=== PATIENT | female | born 1965 | race Caucasian/White ===

== ENCOUNTER 2018-09-04 18:23 | Emergency (ER) | payer SELFPAY ==
[~2018-09-04] VITALS: Ht 177.8 cm; Wt 61.7 kg
[2018-09-04] MEDS ORDERED: ONDANSETRON PF 4 MG/2 ML VIAL. IV ONE (18:45)
[2018-09-04] MEDS ORDERED: IV NORMAL SALINE 1000ML BAG 1,000 ML IV ONE (19:30)
[2018-09-04] MEDS ORDERED: fentaNYL PF VIAL 100 MCG/2 ML VIAL IV ONE (19:30)
[2018-09-04] MEDS ORDERED: PANTOPRAZOLE IV PUSH 40 MG VIAL. IVP ONE (19:30)
[2018-09-04 19:38] LABS: BASO % 0 % (0-3); EOS % 0 % (0-3); HEMATOCRIT 43.7 % (36.0-47.0); HEMOGLOBIN 14.1 g/dL (12.0-15.5); LYMPH # 0.9 x10^3/uL (1.0-4.8); LYMPH % 9 % (24-48); MEAN CORPUSCULAR HEMOGLOBIN 29 pg (25-35); MEAN CORPUSCULAR HGB CONC 32 g/dL (31-37); MEAN CORPUSCULAR VOLUME 90 fL (79-100); MONO # 0.4 x10^3/uL (0.0-1.1); MONO % 4 % (0-9); NEUT # 8.5 x10^3uL (1.8-7.7); NEUT % 87 % (31-73); PLATELET COUNT 300 x10^3/uL (140-400); RED BLOOD COUNT 4.85 x10^6/uL (3.50-5.40); RED CELL DISTRIBUTION WIDTH 14.8 % (11.5-14.5); WHITE BLOOD COUNT 9.8 x10^3/uL (4.0-11.0)
[2018-09-04 19:51] LABS: CALCIUM 10.1 mg/dL (8.5-10.1); CREATININE 1.4 mg/dL (0.6-1.0); GFR 39.5; POTASSIUM 3.2 mmol/L (3.5-5.1)
--- NOTE | 2018-09-04 19:55 | PHYS DOC ---
Past Medical History Past Medical History: Anxiety Additional Past Medical Histor: hiatal hernia, agoraphobia, unknown personality disorder Past Surgical History: Cholecystectomy, Hysterectomy Smoking: Cigarettes, Less than 1pk/day Alcohol Use: None Drug Use: None Adult General Chief Complaint Chief Complaint: NAUSEA/VOMITING/DIARRHA HPI HPI Patient is a 53 year old female who presents with two days of nausea, vomiting and diarrhea. She reports that she has a hiatal hernia, diagnosed [address] [facility]. She reports that over the last six months she has had increased difficulty keeping food down, she states that the food gets stuck in her epigastric region and eventually she vomits it up. She has dropped from 152 to 136 pounds in the last six months. She reports that last night she began vomiting with epigastric pain that increases in pain about every 20 minutes, causing her to throw up and/or dry heave. She pain is a cramping sensation in the epigastric region. She is unable to keep liquids down. The pain has increased to a 10/10 today and she decided to come to the ER. She reports that she began vomiting up blood on the drive in to the ER, in an amount less than a coke can. She reports that Xanax and Seroquel allowed her to sleep a little last night, but she continues to feel the cramping pain. Her reports that when she does vomit, sometimes the vomit is of old food that smells putrid which they attributed to a "sad/slow stomach". Her reports that she is on a list for a free EGD since they do not have insurance. She denies sick contacts. She denies f/c, hematochezia, hematuria, SOB, CP.[] Review of Systems Review of Systems Constitutional: Denies fever or chills [] Eyes: Denies change in visual acuity, redness, or eye pain [] HENT: Denies nasal congestion or sore throat [] Respiratory: Denies cough or shortness of breath [] Cardiovascular: No additional information not addressed in HPI [] GI: Reports epigastric pain with vomiting and cramping sensation. She reports vomiting up red blood. She reports yellow or brown diarrhea. She denies blood stools or black tarry stools. [] : Denies dysuria or hematuria [] Musculoskeletal: Denies back pain or joint pain [] Integument: Denies rash or skin lesions, denies trauma to skin [] Neurologic: Denies headache, focal weakness or sensory changes [] Endocrine: Denies polyuria or polydipsia [] All other systems were reviewed and found to be within normal limits, except as documented in this note. Current Medications Current Medications Current Medications Medications (Trade) Dose Ordered Sig/Carley Start Time Stop Time Status Last Admin Dose Admin Fentanyl Citrate (Fentanyl 2ml Vial) 50 mcg 1X ONCE 09/04/18 19:30 09/04/18 19:31 DC 09/04/18 19:52 50 MCG Lorazepam (Ativan) 1 mg 1X ONCE 09/04/18 19:15 09/04/18 19:16 DC 09/04/18 19:06 1 MG Ondansetron HCl (Zofran) 4 mg 1X ONCE 09/04/18 18:45 09/04/18 19:08 DC 09/04/18 18:45 4 MG Pantoprazole Sodium (PROTONIX VIAL for IV PUSH) 80 mg 1X ONCE 09/04/18 19:30 09/04/18 19:31 DC 09/04/18 19:51 80 MG Potassium Chloride (KCl Oral Soln) 40 meq 1X ONCE 09/04/18 20:15 09/04/18 20:16 DC 09/04/18 20:15 40 MEQ Sodium Chloride 500 ml @ 500 mls/hr 1X ONCE 09/04/18 20:00 09/04/18 20:59 DC 09/04/18 20:00 500 MLS/HR Allergies Allergies Allergies Coded Allergies Type Severity Reaction Last Updated Verified No Known Drug Allergies 09/04/18 No Pt reports penicillin allergy Physical Exam Physical Exam Constitutional: Well developed, well nourished, appears in discomfort, dry heaving during exam with brown sputum production. [] HENT: Normocephalic, atraumatic, bilateral external ears normal, poor dentition, no visible bleeding source appreciated, oropharynx moist, no oral exudates, nose normal. [] Eyes: PERRLA, EOMI, conjunctiva normal, no discharge. [] Neck: Normal range of motion, no tenderness, supple, no stridor. [] Cardiovascular:Heart rate regular rhythm, no murmur [] Lungs & Thorax: Bilateral breath sounds clear to auscultation [] Abdomen: Abdominal integument intact, Bowel sounds normal, soft, general tenderness to palpation in EPIGASTRIC, no masses, no pulsatile masses. [] Skin: Warm, dry, no erythema, no rash. [] Back: No tenderness, no CVA tenderness. [] Extremities: No tenderness, no cyanosis, no clubbing, ROM intact, no edema. [] Neurologic: Alert and oriented X 3, normal motor function, normal sensory function, no focal deficits noted. [] Psychologic: Labile affect, judgement normal, mood normal. [] Current Patient Data Vital Signs Vital Signs Date Time Temp Pulse Resp B/P (MAP) Pulse Ox O2 Delivery O2 Flow Rate FiO2 09/04/18 19:52 16 100 Room Air 09/04/18 19:00 98.8 58 121/76 (91) 98.8 Lab Values Laboratory Tests Test 09/04/18 19:00 09/04/18 21:00 White Blood Count 9.8 x10^3/uL (4.0-11.0) Red Blood Count 4.85 x10^6/uL (3.50-5.40) Hemoglobin 14.1 g/dL (12.0-15.5) Hematocrit 43.7 % (36.0-47.0) Mean Corpuscular Volume 90 fL (79-100) Mean Corpuscular Hemoglobin 29 pg (25-35) Mean Corpuscular Hemoglobin Concent 32 g/dL (31-37) Red Cell Distribution Width 14.8 % (11.5-14.5) H Platelet Count 300 x10^3/uL (140-400) Neutrophils (%) (Auto) 87 % (31-73) H Lymphocytes (%) (Auto) 9 % (24-48) L Monocytes (%) (Auto) 4 % (0-9) Eosinophils (%) (Auto) 0 % (0-3) Basophils (%) (Auto) 0 % (0-3) Neutrophils # (Auto) 8.5 x10^3uL (1.8-7.7) H Lymphocytes # (Auto) 0.9 x10^3/uL (1.0-4.8) L Monocytes # (Auto) 0.4 x10^3/uL (0.0-1.1) Eosinophils # (Auto) 0.0 x10^3/uL (0.0-0.7) Basophils # (Auto) 0.0 x10^3/uL (0.0-0.2) Segmented Neutrophils % 81 % (35-66) H Lymphocytes % 14 % (24-48) L Monocytes % 5 % (0-10) Platelet Estimate Adequate (ADEQUATE) Sodium Level 141 mmol/L (136-145) Potassium Level 3.2 mmol/L (3.5-5.1) L Chloride Level 98 mmol/L (98-107) Carbon Dioxide Level 27 mmol/L (21-32) Anion Gap 16 (6-14) H Blood Urea Nitrogen 14 mg/dL (7-20) Creatinine 1.4 mg/dL (0.6-1.0) H Estimated GFR (Cockcroft-Gault) 39.5 BUN/Creatinine Ratio 10 (6-20) Glucose Level 161 mg/dL (70-99) H Calcium Level 10.1 mg/dL (8.5-10.1) Magnesium Level 1.8 mg/dL (1.8-2.4) Total Bilirubin 0.5 mg/dL (0.2-1.0) Aspartate Amino Transferase (AST) 12 U/L (15-37) L Alanine Aminotransferase (ALT) 16 U/L (14-59) Alkaline Phosphatase 165 U/L (46-116) H Troponin I Quantitative < 0.017 ng/mL (0.000-0.055) Total Protein 9.2 g/dL (6.4-8.2) H Albumin 4.4 g/dL (3.4-5.0) Albumin/Globulin Ratio 0.9 (1.0-1.7) L Lipase 103 U/L (73-393) Ethyl Alcohol Level < 10 mg/dL (0-10) Urine Opiates Screen Pos (NEG) Urine Methadone Screen Neg (NEG) Urine Barbiturates Neg (NEG) Urine Phencyclidine Screen Neg (NEG) Urine Amphetamine/Methamphetamine Neg (NEG) Urine Benzodiazepines Screen Pos (NEG) Urine Cocaine Screen Neg (NEG) Urine Cannabinoids Screen Pos (NEG) Urine Ethyl Alcohol Neg (NEG) Laboratory Tests 09/04/18 19:00 Laboratory Tests 09/04/18 19:00 EKG EKG SINUS RHYTHM RATE 74 THERE IS BORDERLINE SAGGING [address] DEPRESSION FAIRLY DIFUFSELY NO OLD EKG (POTASSIUM WAS 3.2 ) THE QTC IS 484 . PROBABLY HYPOK RATHER THAN ISCHEMIA GIVEN TWO DAYS OF PAIN NEG TROP, MUCH MORE LIKELY HITAL HERNIA RELATED[] Radiology/Procedures Radiology/Procedures [] Impressions: Procedure: Contiguous axial images of the abdomen and pelvis were performed after the administration of 60 cc of Omni 300 IV contrast and without oral contrast. CT Abdomen with contrast: Findings: There has been prior cholecystectomy. Liver: 9 mm x 6 mm hypoattenuating lesion in the right lobe liver is too small to characterize. Spleen: Unremarkable Pancreas: Unremarkable Adrenal Glands: Unremarkable Kidneys: Unremarkable There is no mass or lymphadenopathy. There is no free air. There is no free fluid. CT Pelvis with Contrast: Findings: The urinary bladder is partially collapsed. Apparent mild wall thickening is likely nondistention. There is no free fluid. There is no lymphadenopathy. The appendix is normal. Impression: 1. Hypoattenuating lesion in the right lobe of the liver is too small to characterize but could could be a small hemangioma. 2. No acute findings. PQRS Compliance Statement: One or more of the following individualized dose reduction techniques were utilized for this examination: 1. Automated exposure control 2. Adjustment of the mA and/or kV according to patient size 3. Use of iterative reconstruction technique Electronically signed by: Kalani Martines III, MD (09/04/2018 9:12 PM) [facility] DICTATED and SIGNED BY: KALANI MARTINES III, MD DATE: 09/04/182111 Course & Med Decision Making Course & Med Decision Making Pertinent Labs and Imaging studies reviewed. (See chart for details) Pt presents with two days epigastric pain, vomiting and diarrhea with new onset brown and red streaked sputum production. Pt reports diagnosis of chronic hiatal hernia six years ago and possible gastroparesis. It is likely her conditions are becoming worse considering that solid foods become "stuck" and are then vomited up. 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 Will CT her abdomen to assess for hernia and r/o potential other causes of obstruction such as a mass. Will collect labs to assess Hgb and ensure she is safe to be discharged. Pt is on a list for free EGD and I will recommend that she follow up to monitor her movement up the list if she is stable for d/c. [] -HB, NL, LABS C/W MILD DEHYDRATION, K REPLETED, HYDRATED. -CT SCAN NEG ACUTE. PT MUCH BETTER, NO EVIDENCE OF ACTIVE GI BLEED. SYMPTOMATIC TREATEMENT BELOW AND CALL PMD TOMROROW. PT IS AGREEABLE AND SYMPTOMS RESOLVED COMPLETELY. Jay Disclaimer Jay Disclaimer This electronic medical record was generated, in whole or in part, using a voice recognition dictation system. Departure Departure Impression: Primary Impression: Nausea and vomiting Disposition: HOME, SELF-CARE Condition: STABLE Referrals: NO PCP (PCP) Scripts Omeprazole (OMEPRAZOLE) 40 Mg Capsule.dr 1 CAP PO DAILY, #30 CAP 0 Refills Prov: DEBRA PAYTON MD 09/04/18 Ondansetron Hcl (ZOFRAN) 4 Mg Tablet 4 MG PO PRN TID PRN for NAUSEA/VOMITING, #15 nausea/vomiting Prov: DEBRA PAYTON MD 09/04/18 DEBRA PAYTON MD Sep 04, 2018 19:55
[2018-09-04 19:56] LABS: ALBUMIN 4.4 g/dL (3.4-5.0); ALBUMIN/GLOBULIN RATIO 0.9 (1.0-1.7); TOTAL BILIRUBIN 0.5 mg/dL (0.2-1.0); TOTAL PROTEIN 9.2 g/dL (6.4-8.2)
[2018-09-04] MEDS ORDERED: IV NORMAL SALINE 500ML BAG 500 ML IV ONE (20:00)
[2018-09-04] MEDS ORDERED: POTASSIUM CHLORIDE 20 MEQ/15 ML ORAL LIQUID. PO ONE (20:15)
[2018-09-04 21:15] LABS: BARBITURATES NEG (NEG); BENZODIAZEPINES POS (NEG); CANNABINOIDS POS (NEG); COCAINE NEG (NEG); METHADONE NEG (NEG); OPIATES POS (NEG); PHENCYCLIDINE NEG (NEG)
--- NOTE | 2018-09-04 21:15 | RAD ---
CT SCAN OF THE ABDOMEN AND PELVIS WITH IV CONTRAST. History: Hiatal hernia, severe pain, nausea vomiting diarrhea Comparison:None. Procedure: Contiguous axial images of the abdomen and pelvis were performed after the administration of 60 cc of Omni 300 IV contrast and without oral contrast. CT Abdomen with contrast: Findings: There has been prior cholecystectomy. Liver: 9 mm x 6 mm hypoattenuating lesion in the right lobe liver is too small to characterize. Spleen: Unremarkable Pancreas: Unremarkable Adrenal Glands: Unremarkable Kidneys: Unremarkable There is no mass or lymphadenopathy. There is no free air. There is no free fluid. CT Pelvis with Contrast: Findings: The urinary bladder is partially collapsed. Apparent mild wall thickening is likely nondistention. There is no free fluid. There is no lymphadenopathy. The appendix is normal. Impression: 1. Hypoattenuating lesion in the right lobe of the liver is too small to characterize but could could be a small hemangioma. 2. No acute findings. PQRS Compliance Statement: One or more of the following individualized dose reduction techniques were utilized for this examination: 1. Automated exposure control 2. Adjustment of the mA and/or kV according to patient size 3. Use of iterative reconstruction technique Electronically signed by: Jim Martines III, MD (09/04/2018 9:12 PM) [facility]
[2018-09-04 21:19] LABS: AMPHETAMINE/METHAMPHETAMINE NEG (NEG)
[2018-09-04 21:30] VITALS: BP 146/66
[2018-09-04] MEDS ORDERED: ONDA4TAB7 PO (21:30)
[2018-09-04] MEDS ORDERED: OMEP40CA5 PO (21:30)
[2018-09-04 21:31] LABS: % LYMPHS 14 % (24-48); % MONOS 5 % (0-10); % SEGS 81 % (35-66); PLT ESTIMATE ADEQUATE (ADEQUATE)
[2018-09-04] MEDS ORDERED: CONTRAST GIVEN. MC PRN (23:45)
[2018-09-04] MEDS ORDERED: IOHEXOL 300 MG/ML 100ML VIAL. IV ONE (23:45)
--- NOTE | 2018-09-05 06:35 | EKG ---
[facility] [address] [place] [id number] Test Date: 2018-09-04 Test Time: 20:25:27 Pat Name: NANO MEDINA Department: Room: Gender: F Manager Service Desk: : 1965 Requested By: DEBRA PAYTON Order Number: [id number] Reading MD: Emre Nuñez Measurements Intervals [place] Rate: 74 P: 66 WV: 130 QRS: 76 QRSD: 90 T: 5 QT: 436 QTc: 484 Interpretive Statements SINUS RHYTHM QRS(T) CONTOUR ABNORMALITY CONSIDER INFERIOR MYOCARDIAL DAMAGE PROLONGED QT POSSIBLY ABNORMAL ECG RI6.01 Unconfirmed report No previous ECG available for comparison Electronically Signed On 09-11-2018 11:20:04 CDT by Emre Nuñez
== END 2018-09-04 21:58 | disposition home or self-care (01) ==
LOC: ER 18:23
DX: R11.2 Nausea with vomiting, unspecified (principal); R19.7 Diarrhea, unspecified; R10.13 Epigastric pain; F41.9 Anxiety disorder, unspecified; F17.210 Nicotine dependence, cigarettes, uncomplicated; Z90.710 Acquired absence of both cervix and uterus; Z90.49 Acquired absence of other specified parts of digestive tract
CPT/HCPCS: 36415; 74177; 80053; 80307; 83690; 83735; 84484; 85007; 85025; 93005; 96361; 96374; 96375; 99285; C9113; G0480; J2060; J2405; J3010; J7030; J7040; Q9967